=== PATIENT | female | born 1955 ===

== ENCOUNTER 2021-11-02 19:09 | Emergency (ER) | payer SELFPAY ==
[2021-11-02] MEDS ORDERED: Bacitracin Oint 1 GM U/D Packet TOP ONE (19:11)
[2021-11-02] MEDS ORDERED: Lidocaine 1% 5 ML VIAL INJECT ONE (19:11)
[2021-11-02] MEDS ORDERED: Diphtheria,Pertussis(Acell),Tetanus Vaccine 0.5 ML Syringe IM ONE (19:33)
== END 2021-11-02 19:59 | disposition home or self-care (01) ==
LOC: DL.ED 19:09
DX: S60.451A Superficial foreign body of left index finger, initial encounter (principal); Z23 Encounter for immunization; Z79.899 Other long term (current) drug therapy; W45.8XXA Other foreign body or object entering through skin, initial encounter
CPT/HCPCS: 10120; 90471; 90715; 99283; 99283-25

== ENCOUNTER 2022-10-20 20:42 | Emergency (ER) | payer SELFPAY ==
[2022-10-20] MEDS ORDERED: fentaNYL 100 MCG/2 ML SDV IV ONE (20:43)
[2022-10-20] MEDS ORDERED: Propofol 200 MG/20 ML SDV IV ONE (20:43)
[2022-10-20] MEDS ORDERED: Lactated Ringers 1,000 ML IV ONE (20:43)
[2022-10-20] MEDS ORDERED: Sodium Chloride 0.9% 1,000 ML IV ONE (22:39)
[2022-10-20] MEDS ORDERED: fentaNYL 100 MCG/2 ML SDV ONE (22:47)
[2022-10-20] MEDS ORDERED: Ketorolac 30 MG/ML SDV IVPUSH ONE (23:17)
[2022-10-20] MEDS ORDERED: Take Home: Acetaminophen/HYDROcodone 325-5 MG, 5 Tab Pack PO ONE (23:36)
== END 2022-10-21 00:10 | disposition home or self-care (01) ==
LOC: DL.ED 20:42
DX: S52.572A Other intraarticular fracture of lower end of left radius, initial encounter for closed fracture (principal); F17.210 Nicotine dependence, cigarettes, uncomplicated; W01.0XXA Fall on same level from slipping, tripping and stumbling without subsequent striking against object, initial encounter
CPT/HCPCS: 01820; 25605; 25675; 73100; 96361; 96374; 99152; 99153; 99283; A9270; J1885; J2704; J3010; J7030; J7120

== ENCOUNTER 2022-11-15 15:49 | Emergency (ER) | payer MEDICARE | END 2022-11-16 01:15 | disposition left against medical advice (07) | LOC: DL.ED 15:49 | DX: S52.502D Unspecified fracture of the lower end of left radius, subsequent encounter for closed fracture with routine healing (principal); Z72.0 Tobacco use | CPT/HCPCS: 73090-LT; 99282; 99283 ==